=== PATIENT | female | born 1990 | race Hispanic/Latino ===

== ENCOUNTER 2016-12-16 19:30 | Emergency (ER) | payer BC, OTHER ==
[2016-12-16 19:31] VITALS: BMI 22.1
[2016-12-16 19:58] VITALS: TEMP 98.1
--- NOTE | 2016-12-16 20:28 | ED PDOC ---
Arrival/HPI - General Chief Complaint: Lower Extremity Problem/Injury Time Seen by Provider: 12/16/16 20:07 Historian: Patient - History of Present Illness Narrative History of Present Illness (Text): 12/16/16 20:25 26yo female present with complaint of right foot pain s/p trauma yesterday. states she twisted her foot yesterday while exercising. States pain improved with ice and rest yesterday. She was able to ambulate well. Pain started again this evening while standing at work. States she took 2tabs of Aleve with some relieve. denies any other complaint. Past Medical History - Provider Review Nursing Documentation Reviewed: Yes - Past History Past History: No Previous - Infectious Disease Hx of Infectious Diseases: None - Tetanus Immunization Tetanus Immunization: Unknown, Up to Date - Past Medical History Past Medical History: No Previous - Cardiac Hx Cardiac Disorders: No - Pulmonary Hx Respiratory Disorders: No - Neurological Hx Neurological Disorder: No - HEENT Hx HEENT Disorder: No - Renal Hx Renal Disorder: No - Endocrine/Metabolic Hx Endocrine Disorders: No - Hematological/Oncological Hx Blood Disorders: No - Integumentary Hx Dermatological Disorder: No - Musculoskeletal/Rheumatological Hx Musculoskeletal Disorders: Yes Other/Comment: KNEE INJURY L - Gastrointestinal Hx Gastrointestinal Disorders: No - Genitourinary/Gynecological Hx Genitourinary Disorders: No - Psychiatric Hx Psychophysiologic Disorder: No Hx Depression: No Hx Emotional Abuse: No Hx Physical Abuse: No Hx Substance Use: Yes (CANNABIS) - Surgical History Hx Orthopedic Surgery: Yes (KNEE L meniscus) - Anesthesia Hx Anesthesia: Yes Hx Anesthesia Reactions: No Hx Malignant Hyperthermia: No - Suicidal Assessment Feels Threatened In Home Enviroment: No Family/Social History - Physician Review Nursing Documentation Reviewed: Yes Family/Social History: Unknown Family HX Smoking Status: Heavy Smoker > 10 Cigarettes Daily Hx Alcohol Use: Yes Frequency of alcohol use: Socially Hx Substance Use: Yes (CANNABIS) Hx Substance Use Treatment: No Allergies/Home Meds Allergies/Adverse Reactions: Allergies No Known Allergies Allergy (Verified 12/16/16 19:58) Review of Systems - Physician Review All systems were reviewed & negative as marked: Yes - Review of Systems Constitutional: Normal Eyes: Normal ENT: Normal Respiratory: Normal Cardiovascular: Normal Gastrointestinal: Normal Genitourinary Female: Normal Musculoskeletal: Arthralgias (right ankle pain) Skin: Normal Neurological: Normal Endocrine: Normal Hemo/Lymphatic: Normal Psychiatric: Normal Physical Exam Vital Signs Reviewed: Yes Vital Signs Temp Pulse Resp BP Pulse Ox 12/16/16 19:52 98.1 F 88 20 116/71 100 Temperature: Afebrile Blood Pressure: Normal Pulse: Regular Respiratory Rate: Normal Appearance: Positive for: Well-Appearing, Non-Toxic, Comfortable Pain Distress: None Mental Status: Positive for: Alert and Oriented X 3 - Systems Exam Head: Present: Atraumatic, Normocephalic Pupils: Present: PERRL Extroacular Muscles: Present: EOMI Conjunctiva: Present: Normal Mouth: Present: Moist Mucous Membranes Neck: Present: Normal Range of Motion Respiratory/Chest: Present: Clear to Auscultation, Good Air Exchange. No: Respiratory Distress, Accessory Muscle Use Cardiovascular: Present: Regular Rate and Rhythm, Normal S1, S2. No: Murmurs Abdomen: Present: Normal Bowel Sounds. No: Tenderness, Distention, Peritoneal Signs Back: Present: Normal Inspection Upper Extremity: Present: Normal Inspection. No: Cyanosis, Edema Lower Extremity: Present: NORMAL PULSES, Normal ROM, Tenderness (Right lateral malleolus), Swelling (Right lateral malleolus), Neurovascularly Intact. No: Edema, Cyanosis, Erythema, Deformity, Temperature Abnormalties Neurological: Present: GCS=15, CN II-XII Intact, Speech Normal Skin: Present: Warm, Dry, Normal Color. No: Rashes Psychiatric: Present: Alert, Oriented x 3, Normal Insight, Normal Concentration Medical Decision Making ED Course and Treatment: 12/16/16 21:07 Right ankle xray - No acute fracture/dislocation noted Air cast placed. Pt advised to RICE foot Referred to her PMD TRT ED for any new or worsening symptoms - RAD Interpretation Radiology Orders: 12/16/16 20:22 ANKLE RIGHT 3 VIEWS ROUTINE [RAD] Stat Disposition/Present on Arrival - Present on Arrival Any Indicators Present on Arrival: No History of DVT/PE: No History of Uncontrolled Diabetes: No Urinary Catheter: No History of Decub. Ulcer: No History Surgical Site Infection Following: None - Disposition Have Diagnosis and Disposition been Completed?: Yes Diagnosis: Ankle sprain Disposition: HOME/ ROUTINE Disposition Time: 21:10 Patient Plan: Discharge Condition: STABLE Discharge Instructions (ExitCare): Ankle Sprain (ED) Additional Instructions: Rest, Ice, compress and elevate ankle Follow up with your doctor/Orthopedist return to ED for any new or worsening symptoms Prescriptions: Ibuprofen [Motrin Tab] 600 mg PO Q6 #20 tab Referrals: Jorge Alberto Galindo MD [Primary Care Provider] - Follow up with primary Earl Green MD [Staff Provider] - Follow up with primary Forms: WORK NOTE
[2016-12-16 22:08] VITALS: BP 126/67; PULSE 66; RESP 18; O2SAT 98
--- NOTE | 2016-12-17 10:32 | RAD ---
PROCEDURE: Right Ankle Radiographs. HISTORY: ankle pain s/p trauma COMPARISON: None FINDINGS: BONES: Normal. No fracture. JOINTS: Normal. No osteoarthritis. Ankle mortise maintained. Talar dome intact SOFT TISSUES: Normal. OTHER FINDINGS: None. IMPRESSION: Normal right ankle radiographs.
== END 2016-12-16 22:08 | disposition home or self-care (01) ==
LOC: ED 19:30
DX: S93.401A Sprain of unspecified ligament of right ankle, initial encounter (principal); X50.0XXA Overexertion from strenuous movement or load, initial encounter; Y93.89 Activity, other specified; Y92.89 Other specified places as the place of occurrence of the external cause
CPT/HCPCS: 29540; 73610; 96372; 99285; J1885

== ENCOUNTER 2017-10-25 15:56 | Observation (INO) | payer BC ==
[2017-10-25 15:57] VITALS: BMI 22.1
--- NOTE | 2017-10-25 16:35 | ED PDOC ---
Arrival/HPI - General Chief Complaint: Back Pain - History of Present Illness Narrative History of Present Illness (Text): 10/25/17 16:32 Pt is a 27 yo F with no significant past medical history presents to Emergency department with complaints of right flank pain. Pt states that she fell from stool about 1 week ago and landed on her right side. Pt stated she had right flank pain and hematuria after fall. At that time, she was evaluated by an urgent care clinic, who told her it was her kidney and told her to follow up with a specialist. Today, patient states that right flank pain is worsened and also points to an area in her RLQ that is painful as well. Pt denied dysuria, hematuria, nausea, vomiting, diarrhea, constipation, chest pain, shortness of breath, fever, chills, headache, or dizziness. PMD: [place] Past Medical History - Past History Past History: No Previous - Infectious Disease Hx of Infectious Diseases: None - Tetanus Immunization Tetanus Immunization: Unknown, Up to Date - Past Medical History Past Medical History: No Previous - Cardiac Hx Cardiac Disorders: No - Pulmonary Hx Respiratory Disorders: No - Neurological Hx Neurological Disorder: No - HEENT Hx HEENT Disorder: No - Renal Hx Renal Disorder: No - Endocrine/Metabolic Hx Endocrine Disorders: No - Hematological/Oncological Hx Blood Disorders: No - Integumentary Hx Dermatological Disorder: No - Musculoskeletal/Rheumatological Hx Musculoskeletal Disorders: Yes Other/Comment: KNEE INJURY L - Gastrointestinal Hx Gastrointestinal Disorders: No - Genitourinary/Gynecological Hx Genitourinary Disorders: No - Psychiatric Hx Psychophysiologic Disorder: No Hx Depression: No Hx Emotional Abuse: No Hx Physical Abuse: No Hx Substance Use: Yes (CANNABIS) - Surgical History Hx Orthopedic Surgery: Yes (KNEE L meniscus) - Anesthesia Hx Anesthesia: Yes Hx Anesthesia Reactions: No Hx Malignant Hyperthermia: No - Suicidal Assessment Feels Threatened In Home Enviroment: No Family/Social History Family/Social History: No Known Family HX Smoking Status: Heavy Smoker > 10 Cigarettes Daily Hx Alcohol Use: Yes Hx Substance Use: Yes (CANNABIS) Hx Substance Use Treatment: No Allergies/Home Meds Allergies/Adverse Reactions: Allergies No Known Allergies Allergy (Verified 10/25/17 16:07) Home Medications: Home Meds Medication Instructions Recorded Confirmed No Known Home Med 10/25/17 10/25/17 Review of Systems - Review of Systems Constitutional: Normal Eyes: Normal ENT: Normal Respiratory: Normal Cardiovascular: Normal Gastrointestinal: Abdominal Pain (RLQ) Genitourinary Female: absent: Dysuria, Frequency, Hematuria, Vaginal Discharge Musculoskeletal: Back Pain (right flank pain) Skin: Normal Neurological: Normal Endocrine: Normal Hemo/Lymphatic: Normal Psychiatric: Normal Physical Exam Vital Signs Temp Pulse Resp BP Pulse Ox 10/25/17 19:09 97.8 F 61 18 137/72 100 10/25/17 16:15 98.2 F 71 16 129/83 100 Temperature: Afebrile Blood Pressure: Normal Pulse: Regular Respiratory Rate: Normal Appearance: Positive for: Well-Appearing Pain Distress: None Mental Status: Positive for: Alert and Oriented X 3 - Systems Exam Head: Present: Atraumatic, Normocephalic Extroacular Muscles: Present: EOMI Conjunctiva: Present: Normal Mouth: Present: Moist Mucous Membranes Neck: Present: Normal Range of Motion Respiratory/Chest: Present: Clear to Auscultation, Good Air Exchange. No: Respiratory Distress, Accessory Muscle Use, Wheezes, Rales, Rhonchi Cardiovascular: Present: Regular Rate and Rhythm, Normal S1, S2. No: Murmurs, Rub, Gallop Abdomen: Present: Tenderness (RLQ). No: Distention, Peritoneal Signs, Rebound, Guarding, McBurney's Point Tender, Rovsing's Sign Present Back: Present: CVA Tenderness (right). No: Midline Tenderness, Paraspinal Tenderness Upper Extremity: Present: Normal Inspection Lower Extremity: Present: Normal Inspection Neurological: Present: GCS=15 Skin: Present: Warm, Dry, Normal Color Psychiatric: Present: Alert, Oriented x 3 Medical Decision Making ED Course and Treatment: 10/25/17 16:38 Assessment: 27 yo female presents with right flank pain and RLQ abdominal pain. Plan: - CBC - CMP - Urinalysis - Urine - CPK - Lipase - Coags - IVF - Tylenol 10/25/17 17:29 Labs and Urinalysis unremarkable. Urine test negative. CT abd/pelvis with IV contrast ordered. 10/25/17 18:35 CT abd/pelvis findings discussed with radiologist. Impression: The appendix is not identified with certainty, Question tubular structure measuring approximately 12 mm which would represent a dilated appendix ; alternatively the appendix may reside within the right lower quadrant within normal limits of caliber. No secondary signs of acute appendicitis are identified. Correlate with physical exam and white blood cell count. If indicated repeat study with oral and IV contrast may be considered. 10/25/17 19:[address] Castorena, will observe patient overnight. 10/25/17 19:[address] Nichols, he accepts patient under hospitalist service. - Lab Interpretations Lab Results: 10/25/17 16:54 10/25/17 16:54 Lab Results 10/25/17 16:54: Sodium 141, Potassium 3.9, Chloride 103, Carbon Dioxide 25, Anion Gap 16, BUN 12, Creatinine 0.7, Est GFR ( Amer) > 60, Est GFR (Non- Af Amer) > 60, Random Glucose 91, Calcium 10.0, Total Bilirubin 0.6, AST 33, ALT 42, Alkaline Phosphatase 72, Total Creatine Kinase 118, Total Protein 7.9, Albumin 4.6, Globulin 3.3, Albumin/Globulin Ratio 1.4, Lipase 67 10/25/17 16:54: PT 11.6, INR 1.02, APTT 29.3 10/25/17 16:54: WBC 10.7, RBC 4.75, Hgb 13.1, Hct 40.9, MCV 86.1, MCH 27.6, MCHC 32.0, RDW 13.5, Plt Count 306, MPV 10.1, Gran % 65.9, Lymph % (Auto) 23.6, Bryan % (Auto) 9.6 H, Eos % (Auto) 0.7 L, Baso % (Auto) 0.2, Gran # 7.05 H, Lymph # (Auto) 2.5, Bryan # (Auto) 1.0 H, Eos # (Auto) 0.1, Baso # (Auto) 0.02 10/25/17 16:32: Urine Color Yellow, Urine Appearance Clear, Urine pH 6.5, Ur Specific [place] 1.020, Urine Protein Negative, Urine Glucose (UA) Negative, Urine Ketones Trace H, Urine Blood Negative, Urine Nitrate Negative, Urine Bilirubin Negative, Urine Urobilinogen 0.2, Ur Leukocyte Esterase Negative, Urine HCG, Qual Negative - RAD Interpretation Radiology Orders: 10/25/17 17:19 ABDOMEN & PELVIS [ABD & PELVIS IV CONTRAST ONLY] [CT] Stat - Medication Orders Current Medication Orders: Lactated Ringer's (Lactated Ringer's) 1,000 mls @ 999 mls/hr IV .Q1H1M KATIE Last Admin: 10/25/17 17:02 Dose: 999 mls/hr eMAR Start Stop Document 10/25/17 17:02 [email or web address] (Rec: 10/25/17 17:02 [id number]) Intravenous Solution Start Date 10/25/17 Start Time 17:02 End Date 10/25/17 Discontinued Medications Acetaminophen (Tylenol 325mg Tab) 975 mg PO STAT STA Stop: 10/25/17 16:39 Last Admin: 10/25/17 17:02 Dose: 975 mg MAR Pain/Vitals Document 10/25/17 17:02 [email or web address] (Rec: 10/25/17 17:[id number]) Pain Reassessment Is This A Pain ReAssessment? No Sleep Is patient sleeping during reassessment? No Presence of Pain Presence of Pain Yes Pain Scale Used Pain Scale Used Numeric Location Left, Right or Bilateral Right Upper or Lower Lower Pain Location Body Site Abdomen Description Constant Intensity 8 Scale Used Numeric Pain Behavior Facial Grimacing Alleviating Factors Medication Disposition/Present on Arrival - Present on Arrival Any Indicators Present on Arrival: No History of DVT/PE: No History of Uncontrolled Diabetes: No Urinary Catheter: No History of Decub. Ulcer: No History Surgical Site Infection Following: None - Disposition Have Diagnosis and Disposition been Completed?: Yes Diagnosis: Abdominal pain Disposition: HOSPITALIZED Disposition Time: 19:27 Patient Plan: Admission Patient Problems: Current Active Problems Problem Status Onset Appendicitis, acute Acute Condition: STABLE Referrals: Jorge Alberto Galindo MD [Primary Care Provider] - Follow up with primary Forms: [employer] (Persian)
[2017-10-25 16:44] LABS: PH,URINE 6.5 (4.7-8.0); URINE BILIRUBIN NEGATIVE (NEGATIVE); URINE BLOOD NEGATIVE (NEGATIVE); URINE GLUCOSE (UA) NEGATIVE (NEGATIVE); URINE LEUKOCYTE ESTERASE NEGATIVE Leu/uL (NEGATIVE); URINE NITRATE NEGATIVE (NEGATIVE); URINE PROTEIN NEGATIVE mg/dL (<30 mg/dL); URINE UROBILINOGEN 0.2 E.U./dL (<1 E.U./dL)
[2017-10-25] MEDS ORDERED: Lactated Ringer's 1,000 ML IV SCH ×2 (16:45→20:15)
[2017-10-25 16:51] LABS: URINE APPEARANCE CLEAR (CLEAR); URINE COLOR YELLOW (YELLOW)
[2017-10-25 16:52] LABS: HCG,QUALITATIVE URINE NEGATIVE (NEGATIVE)
[2017-10-25 17:15] LABS: ALB/GLOB RATIO 1.4 (1.1-1.8); ALBUMIN 4.6 g/dL (3.0-4.8); ALT/SGPT 42 U/L (7-56); AST/SGOT 33 U/L (14-36); BLOOD UREA NITROGEN 12 mg/dL (7-21); GFR AFRICAN-AMERICAN > 60; GFR NON-AFRICAN AMERICAN > 60; LIPASE 67 U/L (23-300)
[2017-10-25 17:18] LABS: BASO # 0.02 K/mm3 (0.0-2.0); BASO % 0.2 % (0.0-3.0); EOS # 0.1 (0.0-0.7); EOS % 0.7 % (1.5-5.0); GRAN # 7.05 (1.4-6.5); GRAN % 65.9 % (50.0-68.0); HEMOGLOBIN 13.1 g/dL (12.0-16.0); LYMPH # 2.5 (1.2-3.4); LYMPH % 23.6 % (22.0-35.0); MEAN CELL VOLUME 86.1 fl (80.0-105.0); MEAN CORPUSCULAR HEMOGLOBIN 27.6 pg (25.0-35.0); MEAN PLATELET VOLUME 10.1 fl (7.0-11.0); MONO % 9.6 % (1.0-6.0); RBC 4.75 10^6/uL (3.5-6.1); RED CELL DISTRIBUTION WIDTH 13.5 % (11.5-14.5); WHITE BLOOD COUNT 10.7 10^3/ul (4.5-11.0)
[2017-10-25 17:36] LABS: INR 1.02 (0.93-1.08); PARTIAL THROMBOPLASTIN TIME 29.3 Seconds (25.1-36.5); PROTHROMBIN TIME 11.6 SECONDS (9.4-12.5)
[2017-10-25] MEDS ORDERED: Iohexol 350 MG/100 ML VIAL ONE (17:39)
--- NOTE | 2017-10-25 18:29 | CT ---
PROCEDURE: CT Abdomen and Pelvis with contrast HISTORY: right sided abdominal pain COMPARISON: None available. TECHNIQUE: Contrast dose: 100 mL Omnipaque 350 Radiation dose: Total exam DLP = 693.07 mGy-cm. This CT exam was performed using one or more of the following dose reduction techniques: Automated exposure control, adjustment of the mA and/or kV according to patient size, and/or use of iterative reconstruction technique. FINDINGS: LOWER THORAX: No visible consolidation, pleural effusion, or pneumothorax. LIVER: Unremarkable. GALLBLADDER AND BILE DUCTS: Unremarkable. PANCREAS: Unremarkable. SPLEEN: Unremarkable. ADRENALS: Unremarkable. KIDNEYS AND URETERS: The kidneys enhance symmetrically. No hydronephrosis or obstructing calculus identified. VASCULATURE: No aortic aneurysm. BOWEL: Stomach is nondistended. Lack of oral contrast limits evaluation for bowel pathology. Bowel loops appear within normal limits of caliber without evidence of obstruction. APPENDIX: The appendix is not identified with certainty. Question tubular structure measuring approximately 12 mm which would represent a dilated appendix however there is no evidence of adjacent inflammatory changes (coronal image 63). Alternatively a tubular structure which possibly reflects the appendix resides within the right lower quadrant (series 3, image 145), within normal limits of caliber for an appendix. No secondary signs of acute appendicitis. PERITONEUM: No significant free fluid. No definite free air. LYMPH NODES: No bulky adenopathy identified. BLADDER: Under distended urinary bladder limits evaluation. REPRODUCTIVE: The uterus is present. BONES: No acute osseous abnormality is detected. OTHER FINDINGS: None. IMPRESSION: The appendix is not identified with certainty. Question tubular structure measuring approximately 12 mm which would represent a dilated appendix ; Alternatively the appendix may reside within the right lower quadrant within normal limits of caliber. No secondary signs of acute appendicitis are identified. Correlate with physical exam and white blood cell count. If indicated repeat study with oral and IV contrast may be considered. Findings discussed with Nima Orozco on 10/25/17 at 6:25 p.m.
[2017-10-25] MEDS ORDERED: Oxycodone/Acetaminophen 5/325 mg Tab PO PRN (20:01)
--- NOTE | 2017-10-25 20:16 | CP.PCM.CON ---
History of Present Illness - History of Present Illness History of Present Illness: GENERAL SURGERY CONSULT NOTE FOR DR. BLACK 27yo F with no PMHx presents to the ED with abdominal pain. The pain is located in the RLQ and began yesterday. She went to the gym this morning, then vomited once at 10:30AM, then went to PT and then came to the gym. The pain worsened today. She states that the pain is only present when she coughs, sneezes, laughs or moves a lot. When she is laying still, she has no pain at all. She had decreased appetite yesterday and earlier today but currently she states she is "starving". She denies diarrhea, last BM was today. Denies dysuria, frequency , current hematuria. LMP 2 weeks ago. Of note, on Oct.16, she fell from a stool and landed on her right flank. At that time, she had hematuria. She went to an urgent care center who did a UA which the patient reports showed trace amount of blood. She was told to follow up with a specialist but hadn't yet. The patient had a bruise on the right flank but it has resolved. PMHx: none Surgeries: left meniscus Allergies: none Social history: drinks 1-2x a week, smokes 1-2x a week, smokes marijuana Review of Systems - Review of Systems All systems: reviewed and no additional remarkable complaints except (as per HPI ) Past Patient History - Infectious Disease Hx of Infectious Diseases: None - Tetanus Immunizations Tetanus Immunization: Unknown, Up to Date - Past Social History Smoking Status: Heavy Smoker > 10 Cigarettes Daily Alcohol: Social Drugs: Cannabis - CARDIAC Hx Cardiac Disorders: No - PULMONARY Hx Respiratory Disorders: No - NEUROLOGICAL Hx Neurological Disorder: No - HEENT Hx HEENT Problems: No - RENAL Hx Chronic Kidney Disease: No - ENDOCRINE/METABOLIC Hx Endocrine Disorders: No - HEMATOLOGICAL/ONCOLOGICAL Hx Blood Disorders: No - INTEGUMENTARY Hx Dermatological Problems: No - MUSCULOSKELETAL/RHEUMATOLOGICAL Hx Musculoskeletal Disorders: Yes Other/Comment: KNEE INJURY L - GASTROINTESTINAL Hx Gastrointestinal Disorders: No - GENITOURINARY/GYNECOLOGICAL Hx Genitourinary Disorders: No - PSYCHIATRIC Hx Psychophysiologic Disorder: No Hx Depression: No Hx Emotional Abuse: No Hx Physical Abuse: No Hx Substance Use: Yes (CANNABIS) - SURGICAL HISTORY Hx Orthopedic Surgery: Yes (KNEE L meniscus) - ANESTHESIA Hx Anesthesia: Yes Hx Anesthesia Reactions: No Hx Malignant Hyperthermia: No Meds Allergies/Adverse Reactions: Allergies Allergy/AdvReac Type Severity Reaction Status Date / Time No Known Allergies Allergy Verified 10/25/17 16:07 - Medications Medications: Current Medications Lactated Ringer's (Lactated Ringer's) 1,000 mls @ 999 mls/hr IV .Q1H1M KATIE Last Admin: 10/25/17 17:02 Dose: 999 mls/hr Physical Exam - Constitutional Appears: Well, Non-toxic, No Acute Distress - Head Exam Head Exam: ATRAUMATIC, NORMAL INSPECTION - Eye Exam Eye Exam: EOMI, Normal appearance - Respiratory Exam Respiratory Exam: NORMAL BREATHING PATTERN. absent: Respiratory Distress - Cardiovascular Exam Cardiovascular Exam: +S1, +S2 - GI/Abdominal Exam GI & Abdominal Exam: Soft, Tenderness (very mild tenderness on deep palpation only of RLQ). absent: Distended, Firm, Guarding, Rebound, Rigid - Neurological Exam Neurological exam: Alert, CN II-XII Intact, Oriented x3 - Psychiatric Exam Psychiatric exam: Normal Affect - Skin Skin Exam: Dry, Normal Color, Warm Results - Vital Signs Recent Vital Signs: Last Vital Signs Temp 97.8 F 10/25/17 19:09 Pulse 61 10/25/17 19:09 Resp 18 10/25/17 19:09 BP 137/72 10/25/17 19:09 Pulse Ox 100 10/25/17 19:09 - Labs Result Diagrams: 10/25/17 16:54 10/25/17 16:54 Assessment & Plan - Assessment and Plan (Free Text) Assessment: 27yo F with no PMHx presents to the ED with rule out appendicitis. - Afebrile, VSS - No leukocytosis - CT: appendix is not identified w/ certainty. Questionable tubular structure ~ 12mm which would represent a dilated appendix; alternatively, the appendix may reside within the RLQ within normal limits of caliber. No secondary signs of appendicitis - Will admit overnight for observation - Serial abdominal exams - Regular diet - NPO past midnight in case OR tomorrow - Discussed plan with Dr. Lissette Bland PGY-3
--- NOTE | 2017-10-25 21:20 | CP.PCM.HP ---
<AngelDex HazelVijaya - Last Filed: 10/25/17 21:23> History of Present Illness - History of Present Illness History of Present Illness: Chief Complaint: Lower right quadrant abdominal pain HPI: Patient is a 27 year old female with no significant past medical history who presents with complaints of lower right quadrant abdominal pain which began 10/25 while patient was walking. Patient describes the pain as a dull discomfort which is no radiating, rating it a 7/10. Pain is exacerbated with coughing, deep breathing, certain positions, and walking. Patient states pain is relieved with laying still. Patient states she had a decreased appetite today due to the fact that she vomited this morning, states that she currently however has an appetite. Patient denies nausea, diarrhea, shortness of breath, chest pain, dysuria, urinary urgency, hematuria. Patient makes note of an incident that involved her fallin from a stool onto a tile ground where she hit her head and right flank on October 16. Patient states since fall she has experienced a headache as well as hematuria which lasted for 4 days. Patient initially went to urgent care for treatment last week however was told she most likely bruised her kidney. Patient's last menstrual period was around 10/09/17 CT abdomen:The appendix is not identified with certainty. Question tubular structure measuring approximately 12 mm which would represent a dilated appendix however there is no evidence of adjacent inflammatory changes (coronal image 63). Alternatively a tubular structure which possibly reflects the appendix resides within the right lower quadrant (series 3, image 145), within normal limits of caliber for an appendix. No secondary signs of acute appendicitis. PMD: Dr. Galindo PMHx: none Surgeries: left meniscus Allergies: none Social history: admits to alcohol consumption1-2x a week, tobacco 1-2x a week, marijuana use Family History: non-contributory Present on Admission - Present on Admission Any Indicators Present on Admission: No Review of Systems - Constitutional Constitutional: absent: Chills, Fever - EENT Eyes: absent: Blurred Vision, Change in Vision Ears: absent: Disequilibrium, Dizziness Nose/Mouth/Throat: absent: Nasal Congestion, Nasal Trauma - Cardiovascular Cardiovascular: absent: Chest Pain, Dyspnea, Leg Edema, Palpitations - Respiratory Respiratory: absent: Cough, Dyspnea - Gastrointestinal Gastrointestinal: Nausea, Vomiting. absent: Diarrhea - Genitourinary Genitourinary: absent: Difficulty Urinating, Dysuria - Musculoskeletal Musculoskeletal: Back Pain - Neurological Neurological: absent: Confusion, Dizziness, Numbness, Focal Weakness, Lack of Coordination, Restless Legs - Endocrine Endocrine: absent: Fatigue, Polyuria Past Patient History - Infectious Disease Hx of Infectious Diseases: None - Tetanus Immunizations Tetanus Immunization: Unknown, Up to Date - Past Social History Smoking Status: Heavy Smoker > 10 Cigarettes Daily Alcohol: Social Drugs: Cannabis - CARDIAC Hx Cardiac Disorders: No - PULMONARY Hx Respiratory Disorders: No - NEUROLOGICAL Hx Neurological Disorder: No - HEENT Hx HEENT Problems: No - RENAL Hx Chronic Kidney Disease: No - ENDOCRINE/METABOLIC Hx Endocrine Disorders: No - HEMATOLOGICAL/ONCOLOGICAL Hx Blood Disorders: No - INTEGUMENTARY Hx Dermatological Problems: No - MUSCULOSKELETAL/RHEUMATOLOGICAL Hx Musculoskeletal Disorders: Yes Other/Comment: KNEE INJURY L - GASTROINTESTINAL Hx Gastrointestinal Disorders: No - GENITOURINARY/GYNECOLOGICAL Hx Genitourinary Disorders: No - PSYCHIATRIC Hx Psychophysiologic Disorder: No Hx Depression: No Hx Emotional Abuse: No Hx Physical Abuse: No Hx Substance Use: Yes (CANNABIS) - SURGICAL HISTORY Hx Orthopedic Surgery: Yes (KNEE L meniscus) - ANESTHESIA Hx Anesthesia: Yes Hx Anesthesia Reactions: No Hx Malignant Hyperthermia: No Meds Allergies/Adverse Reactions: Allergies Allergy/AdvReac Type Severity Reaction Status Date / Time No Known Allergies Allergy Verified 10/25/17 16:07 Physical Exam - Constitutional Appears: Non-toxic, No Acute Distress - Head Exam Head Exam: ATRAUMATIC, NORMAL INSPECTION, NORMOCEPHALIC - Eye Exam Eye Exam: EOMI, Normal appearance, PERRL Pupil Exam: NORMAL ACCOMODATION. absent: Fixed, Irregular, Miosis, Mydriatic, Unequal - ENT Exam ENT Exam: Mucous Membranes Moist, Normal Exam - Neck Exam Neck exam: Positive for: Normal Inspection - Respiratory Exam Respiratory Exam: Clear to Auscultation Bilateral, NORMAL BREATHING PATTERN - Cardiovascular Exam Cardiovascular Exam: REGULAR RHYTHM, +S1, +S2 - GI/Abdominal Exam GI & Abdominal Exam: Hypoactive Bowel Sounds. absent: Mass, Pulsatile Mass, Rebound - Extremities Exam Extremities exam: Positive for: normal inspection - Back Exam Back exam: NORMAL INSPECTION - Neurological Exam Neurological exam: Alert, CN II-XII Intact, Oriented x3 - Psychiatric Exam Psychiatric exam: Normal Affect, Normal Mood - Skin Skin Exam: Intact, Normal Color, Warm Results - Vital Signs Recent Vital Signs: Last Vital Signs Temp 97.8 F 10/25/17 19:09 Pulse 61 10/25/17 19:09 Resp 18 10/25/17 19:09 BP 137/72 10/25/17 19:09 Pulse Ox 100 10/25/17 19:09 - Labs Result Diagrams: 10/25/17 16:54 10/25/17 16:54 Assessment & Plan - Assessment and Plan (Free Text) Assessment: Patient is a 27 year old female with no significant past medical history who presents with complaints of lower right quadrant abdominal pain which began while patient was walking. Plan: Abdominal pain -Continue with LR for fluids -Zofran -Tylenol and Percocet for pain control -NPO -Perform serial abdominal examinations to assess for any change -CT abdomen /pelvis reading concerned for possible appendicitis; awaiting Gen surgery recommendations Headache -Fioricet PRN -Patient currently has no focal neurological deficits; if anything changes or worsen, will obtain CT head GI/DVT prophylaxis Pepcid/Scds Case reviewed and discussed with Dr. Simone Ortiz PGY1 <Marcus Nichols - Last Filed: 10/25/17 23:34> Results - Vital Signs Recent Vital Signs: Last Vital Signs Temp 97.9 F 10/25/17 21:55 Pulse 70 10/25/17 21:55 Resp 19 10/25/17 21:55 BP 137/72 10/25/17 19:09 Pulse Ox 98 10/25/17 21:55 - Labs Result Diagrams: 10/25/17 16:54 10/25/17 16:54 Attending/Attestation - Attestation I have personally seen and examined this patient.: Yes I have fully participated in the care of the patient.: Yes I have reviewed all pertinent clinical information: Yes Notes (Text): 10/25/17 23:32 I agree with the note and exam as written above by the director medical safety with the addition/exception of the followin27 y/o female without any pmhx presents to the ED with RLQ abdominal pain. CT of the abd/pelvis was suspicious for a dilated appendix and not necessarily appendicitis; patient will be observed with serial abdominal examinations and surgical followup to determine whether this is appendicitis and requires appenedectomy.
[2017-10-25] MEDS ORDERED: Apap-Butalbital-Caffeine 325-50-40mg Tab PO PRN (21:26)
[2017-10-26 07:51] VITALS: BP 98/45; PULSE 52; TEMP 98.4; O2SAT 100
[2017-10-26 08:09] LABS: BASO # 0.02 K/mm3 (0.0-2.0); BASO % 0.3 % (0.0-3.0); EOS # 0.1 (0.0-0.7); EOS % 1.8 % (1.5-5.0); GRAN # 4.02 (1.4-6.5); GRAN % 51.6 % (50.0-68.0); HEMOGLOBIN 11.8 g/dL (12.0-16.0); LYMPH # 2.9 (1.2-3.4); LYMPH % 37.3 % (22.0-35.0); MEAN CELL VOLUME 86.6 fl (80.0-105.0); MEAN CORPUSCULAR HEMOGLOBIN 26.8 pg (25.0-35.0); MEAN PLATELET VOLUME 10.3 fl (7.0-11.0); MONO # 0.7 (0.1-0.6); RBC 4.4 10^6/uL (3.5-6.1); RED CELL DISTRIBUTION WIDTH 13.5 % (11.5-14.5); WHITE BLOOD COUNT 7.8 10^3/ul (4.5-11.0)
[2017-10-26 08:28] LABS: ALB/GLOB RATIO 1.4 (1.1-1.8); ALBUMIN 3.8 g/dL (3.0-4.8); ALT/SGPT 38 U/L (7-56); AST/SGOT 42 U/L (14-36); BLOOD UREA NITROGEN 9 mg/dL (7-21); CALCIUM 9.5 mg/dL (8.4-10.5); GFR AFRICAN-AMERICAN > 60; GFR NON-AFRICAN AMERICAN > 60
[2017-10-26 09:23] VITALS: RESP 18
--- NOTE | 2017-10-26 10:36 | CP.PCM.PN ---
Subjective - Date & Time of Evaluation Date of Evaluation: 10/26/17 Time of Evaluation: 10:33 - Subjective Subjective: Surgery: Dr. Mclaughlin Patient feeling better today. Only mild pain with movement. Per nursing no acute events overnight. Objective - Vital Signs/Intake and Output Vital Signs (last 24 hours): Temp Pulse Resp BP Pulse Ox 98.4 F 52 L 18 98/45 L 100 10/26/17 07:00 10/26/17 07:00 10/26/17 09:16 10/26/17 07:00 10/26/17 07:00 - Medications Medications: Current Medications Acetaminophen (Tylenol 325mg Tab) 650 mg PO Q4 PRN PRN Reason: Pain, moderate (4-7) Acetaminophen/Butalbital/Caffeine (Fioricet) 1 tab PO Q4H PRN PRN Reason: Headache Lactated Ringer's (Lactated Ringer's) 1,000 mls @ 999 mls/hr IV .Q1H1M [facility] Last Admin: 10/25/17 17:02 Dose: 999 mls/hr Lactated Ringer's (Lactated Ringer's) 1,000 mls @ 125 mls/hr IV .Q8H [facility] Stop: 10/26/17 12:14 Last Admin: 10/26/17 09:39 Dose: 125 mls/hr Ondansetron HCl (Zofran Inj) 4 mg IVP Q6H PRN PRN Reason: Nausea/Vomiting Oxycodone/Acetaminophen (Percocet 5/325 Mg Tab) 1 tab PO Q6H PRN PRN Reason: Pain, severe (8-10) Stop: 10/28/17 20:16 Last Admin: 10/26/17 00:10 Dose: 1 tab - Labs Labs: 10/26/17 07:30 10/26/17 07:30 PT 11.6 SECONDS (9.4-12.5) 10/25/17 16:54 INR 1.02 (0.93-1.08) 10/25/17 16:54 APTT 29.3 Seconds (25.1-36.5) 10/25/17 16:54 - Constitutional Appears: Well, Non-toxic, No Acute Distress - Head Exam Head Exam: ATRAUMATIC, NORMOCEPHALIC - Eye Exam Eye Exam: EOMI, Normal appearance - ENT Exam ENT Exam: Mucous Membranes Moist - Respiratory Exam Respiratory Exam: NORMAL BREATHING PATTERN. absent: Respiratory Distress - Cardiovascular Exam Cardiovascular Exam: REGULAR RHYTHM. absent: Tachycardia - GI/Abdominal Exam GI & Abdominal Exam: Soft. absent: Distended, Guarding, Tenderness, Rebound Assessment and Plan - Assessment and Plan (Free Text) Assessment: 27 y/o female with RLQ abdominal pain resolved , most likely menstrual cycle related vs trauma from fall Plan: -reg diet -no IVFs -WBC normal and pain resolved: most likely not acute appy -OOB -cleared for d/c from surgical standpoint -return to nearest ER if symptoms return -s/e w/ Dr. Lissette Caal pGY3
--- NOTE | 2017-10-26 15:42 | CP.PCM.DIS ---
<Dex Ortiz - Last Filed: 10/26/17 23:35> Provider - Provider Date of Admission: 10/25/17 19:28 Attending physician: Winifred Wilson MD Primary care physician: Jorge Alberto Galindo MD Consults: General Surgery: Dr. Mclaughlin Time Spent in preparation of Discharge (in minutes): 45 Diagnosis - Discharge Diagnosis (1) Abdominal pain Status: Acute Priority: Medium (2) Abdominal muscle strain Status: Acute Priority: Medium Hospital Course - Lab Results Lab Results: Most Recent Lab Values WBC 7.8 10^3/ul (4.5-11.0) D 10/26/17 07:30 RBC 4.40 10^6/uL (3.5-6.1) 10/26/17 07:30 Hgb 11.8 g/dL (12.0-16.0) L 10/26/17 07:30 Hct 38.1 % (36.0-48.0) 10/26/17 07:30 MCV 86.6 fl (80.0-105.0) 10/26/17 07:30 MCH 26.8 pg (25.0-35.0) 10/26/17 07:30 MCHC 31.0 g/dl (31.0-37.0) 10/26/17 07:30 RDW 13.5 % (11.5-14.5) 10/26/17 07:30 Plt Count 259 10^3/uL (120.0-450.0) 10/26/17 07:30 MPV 10.3 fl (7.0-11.0) 10/26/17 07:30 Gran % 51.6 % (50.0-68.0) 10/26/17 07:30 Lymph % (Auto) 37.3 % (22.0-35.0) H 10/26/17 07:30 [place] % (Auto) 9.0 % (1.0-6.0) H 10/26/17 07:30 Eos % (Auto) 1.8 % (1.5-5.0) 10/26/17 07:30 Baso % (Auto) 0.3 % (0.0-3.0) 10/26/17 07:30 Gran # 4.02 (1.4-6.5) 10/26/17 07:30 Lymph # (Auto) 2.9 (1.2-3.4) 10/26/17 07:30 [place] # (Auto) 0.7 (0.1-0.6) H 10/26/17 07:30 Eos # (Auto) 0.1 (0.0-0.7) 10/26/17 07:30 Baso # (Auto) 0.02 K/mm3 (0.0-2.0) 10/26/17 07:30 PT 11.6 SECONDS (9.4-12.5) 10/25/17 16:54 INR 1.02 (0.93-1.08) 10/25/17 16:54 APTT 29.3 Seconds (25.1-36.5) 10/25/17 16:54 Sodium 138 mmol/L (132-148) 10/26/17 07:30 Potassium 3.9 mmol/L (3.6-5.0) 10/26/17 07:30 Chloride 104 mmol/L (98-107) 10/26/17 07:30 Carbon Dioxide 26 mmol/L (21-33) 10/26/17 07:30 Anion Gap 13 (10-20) 10/26/17 07:30 BUN 9 mg/dL (7-21) 10/26/17 07:30 Creatinine 0.6 mg/dl (0.7-1.2) L 10/26/17 07:30 Est GFR ( Amer) > 60 10/26/17 07:30 Est GFR (Non-Af Amer) > 60 10/26/17 07:30 Random Glucose 83 mg/dL (70-110) 10/26/17 07:30 Calcium 9.5 mg/dL (8.4-10.5) 10/26/17 07:30 Total Bilirubin 0.8 mg/dL (0.2-1.3) 10/26/17 07:30 AST 42 U/L (14-36) H D 10/26/17 07:30 ALT 38 U/L (7-56) 10/26/17 07:30 Alkaline Phosphatase 58 U/L (38-126) 10/26/17 07:30 Total Creatine Kinase 118 U/L (35-230) 10/25/17 16:54 Total Protein 6.5 g/dL (5.8-8.3) 10/26/17 07:30 Albumin 3.8 g/dL (3.0-4.8) 10/26/17 07:30 Globulin 2.7 gm/dL 10/26/17 07:30 Albumin/Globulin Ratio 1.4 (1.1-1.8) 10/26/17 07:30 Lipase 67 U/L (23-300) 10/25/17 16:54 Urine Color Yellow (YELLOW) 10/25/17 16:32 Urine Appearance Clear (CLEAR) 10/25/17 16:32 Urine pH 6.5 (4.7-8.0) 10/25/17 16:32 Ur Specific [place] 1.020 (1.005-1.035) 10/25/17 16:32 Urine Protein Negative mg/dL (<30 mg/dL) 10/25/17 16:32 Urine Glucose (UA) Negative mg/dL (NEGATIVE) 10/25/17 16:32 Urine Ketones Trace mg/dL (NEGATIVE) H 10/25/17 16:32 Urine Blood Negative (NEGATIVE) 10/25/17 16:32 Urine Nitrate Negative (NEGATIVE) 10/25/17 16:32 Urine Bilirubin Negative (NEGATIVE) 10/25/17 16:32 Urine Urobilinogen 0.2 E.U./dL (<1 E.U./dL) 10/25/17 16:32 Ur Leukocyte Esterase Negative [place]/uL (NEGATIVE) 10/25/17 16:32 Urine HCG, Qual Negative (NEGATIVE) 10/25/17 16:32 - Hospital Course Hospital Course: Patient is a 27 year old female with no significant past medical history who presented with complaints of lower right quadrant abdominal pain which began while patient was walking. Patient described the pain as a dull discomfort which is no radiating, rating it a 7/10. Pain was exacerbated with coughing, deep breathing, certain positions, and walking. Patient stated pain was relieved by laying still. Patient denied nausea, diarrhea, shortness of breath , chest pain, dysuria, urinary urgency, hematuria. Patient made note of an incident that involved her falling from a stool onto a tile ground where she hit her head and right flank on October 16. Patient states since fall she has experienced a headache as well as hematuria which lasted for 4 days. Patient initially went to urgent care for treatment last week however was told she most likely bruised her kidney. Patient's last menstrual period was around 10/09/17. The appendix is not identified with certainty. Question tubular structure measuring approximately 12 mm which would represent a dilated appendix however there is no evidence of adjacent inflammatory changes (coronal image 63). Alternatively a tubular structure which possibly reflects the appendix resides within the right lower quadrant (series 3, image 145), within normal limits of caliber for an appendix. No secondary signs of acute appendicitis. Patient was evaluated by general surgery and diagnosed as most likely acute appendicitis and therefore cleared from a surgery standpoint. Patient when seen in the morning stated that she still had slight discomfort in the lower right quadrant with movement however admits to pain improving. Patient states she works out her abdomen daily; stretches prior to and after exercising was discussed with patient to prevent muscle strain. Patient stated she had to leave today for classes and was discharged with motrin and in agreement with plan. Case reviewed and discussed with Dr. Silas Ortiz PGY1 Discharge Exam - Head Exam Head Exam: ATRAUMATIC, NORMOCEPHALIC - Eye Exam Eye Exam: EOMI, Normal appearance - ENT Exam ENT Exam: Mucous Membranes Moist - Neck Exam Neck exam: Normal Inspection - Respiratory Exam Respiratory Exam: Clear to PA & Lateral, NORMAL BREATHING PATTERN - Cardiovascular Exam Cardiovascular Exam: REGULAR RHYTHM, +S1, +S2 - GI/Abdominal Exam GI & Abdominal Exam: Normal Bowel Sounds, Soft, Tenderness, Unremarkable. absent: Distended, Firm, Guarding, Hernia, Hyperactive Bowel Sounds, Mass, Organomegaly, Pulsatile Mass, Rigid - Neurological Exam Neurological exam: Alert, CN II-XII Intact, Oriented x3 - Psychiatric Exam Psychiatric exam: Normal Affect, Normal Mood - Skin Skin Exam: Intact, Normal Color, Warm Discharge Plan - Discharge Medications Prescriptions: Ibuprofen [Motrin] 400 mg PO Q4H #42 tab - Follow Up Plan Condition: STABLE Disposition: HOME/ ROUTINE Instructions: How to Stop Smoking (DC), Influenza (DC), Acute Abdominal Pain ( DC) Referrals: Jorge Alberto Galindo MD [Primary Care Provider] - <Yaritza Rosen - Last Filed: 10/27/17 17:21> Provider - Provider Date of Admission: 10/25/17 19:28 Attending physician: Winifred Wilson MD Primary care physician: Jorge Alberto Galindo MD [facility] Course - Lab Results Lab Results: Most Recent Lab Values WBC 7.8 10^3/ul (4.5-11.0) D 10/26/17 07:30 RBC 4.40 10^6/uL (3.5-6.1) 10/26/17 07:30 Hgb 11.8 g/dL (12.0-16.0) L 10/26/17 07:30 Hct 38.1 % (36.0-48.0) 10/26/17 07:30 MCV 86.6 fl (80.0-105.0) 10/26/17 07:30 MCH 26.8 pg (25.0-35.0) 10/26/17 07:30 MCHC 31.0 g/dl (31.0-37.0) 10/26/17 07:30 RDW 13.5 % (11.5-14.5) 10/26/17 07:30 Plt Count 259 10^3/uL (120.0-450.0) 10/26/17 07:30 MPV 10.3 fl (7.0-11.0) 10/26/17 07:30 Gran % 51.6 % (50.0-68.0) 10/26/17 07:30 Lymph % (Auto) 37.3 % (22.0-35.0) H 10/26/17 07:30 [place] % (Auto) 9.0 % (1.0-6.0) H 10/26/17 07:30 Eos % (Auto) 1.8 % (1.5-5.0) 10/26/17 07:30 Baso % (Auto) 0.3 % (0.0-3.0) 10/26/17 07:30 Gran # 4.02 (1.4-6.5) 10/26/17 07:30 Lymph # (Auto) 2.9 (1.2-3.4) 10/26/17 07:30 [place] # (Auto) 0.7 (0.1-0.6) H 10/26/17 07:30 Eos # (Auto) 0.1 (0.0-0.7) 10/26/17 07:30 Baso # (Auto) 0.02 K/mm3 (0.0-2.0) 10/26/17 07:30 PT 11.6 SECONDS (9.4-12.5) 10/25/17 16:54 INR 1.02 (0.93-1.08) 10/25/17 16:54 APTT 29.3 Seconds (25.1-36.5) 10/25/17 16:54 Sodium 138 mmol/L (132-148) 10/26/17 07:30 Potassium 3.9 mmol/L (3.6-5.0) 10/26/17 07:30 Chloride 104 mmol/L (98-107) 10/26/17 07:30 Carbon Dioxide 26 mmol/L (21-33) 10/26/17 07:30 Anion Gap 13 (10-20) 10/26/17 07:30 BUN 9 mg/dL (7-21) 10/26/17 07:30 Creatinine 0.6 mg/dl (0.7-1.2) L 10/26/17 07:30 Est GFR ( Amer) > 60 10/26/17 07:30 Est GFR (Non-Af Amer) > 60 10/26/17 07:30 Random Glucose 83 mg/dL (70-110) 10/26/17 07:30 Calcium 9.5 mg/dL (8.4-10.5) 10/26/17 07:30 Total Bilirubin 0.8 mg/dL (0.2-1.3) 10/26/17 07:30 AST 42 U/L (14-36) H D 10/26/17 07:30 ALT 38 U/L (7-56) 10/26/17 07:30 Alkaline Phosphatase 58 U/L (38-126) 10/26/17 07:30 Total Creatine Kinase 118 U/L (35-230) 10/25/17 16:54 Total Protein 6.5 g/dL (5.8-8.3) 10/26/17 07:30 Albumin 3.8 g/dL (3.0-4.8) 10/26/17 07:30 Globulin 2.7 gm/dL 10/26/17 07:30 Albumin/Globulin Ratio 1.4 (1.1-1.8) 10/26/17 07:30 Lipase 67 U/L (23-300) 10/25/17 16:54 Urine Color Yellow (YELLOW) 10/25/17 16:32 Urine Appearance Clear (CLEAR) 10/25/17 16:32 Urine pH 6.5 (4.7-8.0) 10/25/17 16:32 Ur Specific [place] 1.020 (1.005-1.035) 10/25/17 16:32 Urine Protein Negative mg/dL (<30 mg/dL) 10/25/17 16:32 Urine Glucose (UA) Negative mg/dL (NEGATIVE) 10/25/17 16:32 Urine Ketones Trace mg/dL (NEGATIVE) H 10/25/17 16:32 Urine Blood Negative (NEGATIVE) 10/25/17 16:32 Urine Nitrate Negative (NEGATIVE) 10/25/17 16:32 Urine Bilirubin Negative (NEGATIVE) 10/25/17 16:32 Urine Urobilinogen 0.2 E.U./dL (<1 E.U./dL) 10/25/17 16:32 Ur Leukocyte Esterase Negative [place]cira/uL (NEGATIVE) 10/25/17 16:32 Urine HCG, Qual Negative (NEGATIVE) 10/25/17 16:32 Attending/Attestation - Attestation I have personally seen and examined this patient.: Yes I have fully participated in the care of the patient.: Yes I have reviewed all pertinent clinical information, including history, physical exam and plan: Yes Notes (Text): I have seen and examined the patient at bedside. Agree with the above note dictated by the resident. Follow up with Dr Albright within 3-5 days.
== END 2017-10-26 12:56 | disposition home or self-care (01) ==
LOC: ED 15:56 → ERH 19:28 → 5RSO 10-26 04:04
PROVIDERS: ADMIT Internal Medicine; ATTEND Internal Medicine
DX: S39.011A Strain of muscle, fascia and tendon of abdomen, initial encounter (principal); R10.31 Right lower quadrant pain; F17.210 Nicotine dependence, cigarettes, uncomplicated; W07.XXXA Fall from chair, initial encounter; Y92.9 Unspecified place or not applicable
CPT/HCPCS: 36415; 74177; 80053; 81003; 82550; 83690; 84703; 85025; 85610; 85730; 99284; G0378; J7120; Q9967

== ENCOUNTER 2017-12-03 23:56 | Emergency (ER) | payer BC ==
[2017-12-04 00:09] VITALS: BMI 28.9
[2017-12-04 00:10] VITALS: BP 132/84; PULSE 64; RESP 17; TEMP 98.2; O2SAT 100
--- NOTE | 2017-12-04 00:14 | ED PDOC ---
Arrival/HPI - General Historian: Patient <Leni Butt A - Last Filed: 12/04/17 00:08> <Andrew Mcadams - Last Filed: 12/04/17 00:46> - General Time Seen by Provider: 12/04/17 00:05 - History of Present Illness Narrative History of Present Illness (Text): 12/04/17 00:08 27yo female with no PMHx who present with complaint of b/l eyes pain, purulent discharge, tearing since this afternoon. She denies trauma, visual acuity change , any other complaint. (Leni Butt A) Past Medical History - Provider Review Nursing Documentation Reviewed: Yes - Past History Past History: No Previous - Infectious Disease Hx of Infectious Diseases: None - Tetanus Immunization Tetanus Immunization: Unknown, Up to Date - Past Medical History Past Medical History: No Previous - Cardiac Hx Cardiac Disorders: No - Pulmonary Hx Respiratory Disorders: No - Neurological Hx Neurological Disorder: No - HEENT Hx HEENT Disorder: No - Renal Hx Renal Disorder: No - Endocrine/Metabolic Hx Endocrine Disorders: No - Hematological/Oncological Hx Blood Disorders: No - Integumentary Hx Dermatological Disorder: No - Musculoskeletal/Rheumatological Hx Falls: No - Gastrointestinal Hx Gastrointestinal Disorders: No - Genitourinary/Gynecological Hx Genitourinary Disorders: No - Psychiatric Hx Psychophysiologic Disorder: No Hx Depression: No Hx Emotional Abuse: No Hx Physical Abuse: No Hx Substance Use: Yes (CANNABIS) - Surgical History Hx Orthopedic Surgery: Yes (left knee) - Anesthesia Hx Anesthesia: Yes Hx Anesthesia Reactions: No Hx Malignant Hyperthermia: No - Suicidal Assessment Feels Threatened In Home Enviroment: No <Leni Butt A - Last Filed: 12/04/17 00:08> Family/Social History - Physician Review Nursing Documentation Reviewed: Yes Family/Social History: Unknown Family HX Smoking Status: Current Some Days Smoker Hx Alcohol Use: Yes Hx Substance Use: Yes (CANNABIS) Hx Substance Use Treatment: No <Leni Butt A - Last Filed: 12/04/17 00:08> Allergies/Home Meds <Leni Butt A - Last Filed: 12/04/17 00:08> <Andrew Mcadams - Last Filed: 12/04/17 00:46> Allergies/Adverse Reactions: Allergies No Known Allergies Allergy (Verified 12/04/17 00:12) Review of Systems - Physician Review All systems were reviewed & negative as marked: Yes - Review of Systems Constitutional: Normal Eyes: Eye Pain (B/L eyes) ENT: Normal Respiratory: Normal Cardiovascular: Normal Gastrointestinal: Normal Genitourinary Female: Normal Musculoskeletal: Normal Skin: Normal Neurological: Normal Endocrine: Normal Hemo/Lymphatic: Normal Psychiatric: Normal <Leni Butt A - Last Filed: 12/04/17 00:08> Physical Exam Vital Signs Reviewed: Yes Temperature: Afebrile Blood Pressure: Normal Pulse: Regular Respiratory Rate: Normal Appearance: Positive for: Well-Appearing, Non-Toxic, Comfortable Pain Distress: None Mental Status: Positive for: Alert and Oriented X 3 - Systems Exam Head: Present: Atraumatic, Normocephalic Pupils: Present: PERRL Extroacular Muscles: Present: EOMI Conjunctiva: Present: Injected (B/L), Icteric (Red b/l ), Other (Tearing) Mouth: Present: Moist Mucous Membranes Neck: Present: Normal Range of Motion Respiratory/Chest: Present: Clear to Auscultation, Good Air Exchange. No: Respiratory Distress, Accessory Muscle Use Cardiovascular: Present: Regular Rate and Rhythm, Normal S1, S2. No: Murmurs Abdomen: Present: Normal Bowel Sounds. No: Tenderness, Distention, Peritoneal Signs Back: Present: Normal Inspection Upper Extremity: Present: Normal Inspection. No: Cyanosis, Edema Lower Extremity: Present: Normal Inspection. No: Edema Neurological: Present: GCS=15, CN II-XII Intact, Speech Normal Skin: Present: Warm, Dry, Normal Color. No: Rashes Psychiatric: Present: Alert, Oriented x 3, Normal Insight, Normal Concentration <Leni Butt A - Last Filed: 12/04/17 00:08> Vital Signs Temp Pulse Resp BP Pulse Ox 12/04/17 00:10 98.2 F 64 17 132/84 100 - Medication Orders Current Medication Orders: Discontinued Medications Tobramycin Sulfate (Tobrex 0.3% Ophth Soln) 2 drop OD STAT STA Stop: 12/04/17 00:16 - PA / MINING MANAGER / Resident Statement / has reviewed & agrees with the documentation as recorded. / has examined the patient and agrees with the treatment plan. <Andrew Mcadams - Last Filed: 12/04/17 00:46> Disposition/Present on Arrival - Present on Arrival Any Indicators Present on Arrival: No History of DVT/PE: No History of Uncontrolled Diabetes: No Urinary Catheter: No History Surgical Site Infection Following: None - Disposition Have Diagnosis and Disposition been Completed?: Yes Disposition Time: 12:20 Patient Plan: Discharge <Leni Butt - Last Filed: 12/04/17 00:08> <Andrew Mcadams - Last Filed: 12/04/17 00:46> - Disposition Diagnosis: Conjunctivitis Disposition: HOME/ ROUTINE Condition: STABLE Discharge Instructions (ExitCare): Conjunctivitis ([place]) (DC) Additional Instructions: Wash hands constantly and follow up with your doctor/brush maker machine Return to ED for any new symptoms Referrals: Joao Silver MD [Staff Provider] - Follow up with primary
[2017-12-04] MEDS ORDERED: Tobramycin 0.3% OPHT SOLN OD STA (00:15)
== END 2017-12-04 00:50 | disposition home or self-care (01) ==
LOC: ED 23:56
DX: H10.9 Unspecified conjunctivitis (principal)